=== PATIENT | male | born 1965 | race Caucasian/White ===

== ENCOUNTER 2017-07-15 10:56 | Emergency (ER) | payer OTHER ==
[~2017-07-15] VITALS: Ht 182.9 cm; Wt 86.0 kg
[2017-07-15 11:20] VITALS: BP 148/75
[2017-07-15] MEDS ORDERED: IBUPROFEN 800 MG TABLET PO ONE (12:00)
[2017-07-15] MEDS ORDERED: LIDOCAINE HCL 1% 10 ML VIAL INJ ONE (13:00)
== END 2017-07-15 14:10 | disposition left against medical advice (07) ==
LOC: EMS 10:59
DX: S62.630A Displaced fracture of distal phalanx of right index finger, initial encounter for closed fracture (principal); W23.0XXA Caught, crushed, jammed, or pinched between moving objects, initial encounter; Y93.89 Activity, other specified; Y92.810 Car as the place of occurrence of the external cause; Y99.8 Other external cause status
CPT/HCPCS: 73140; 99284; J3490